=== PATIENT | male | born 1980 | race Caucasian/White ===

== ENCOUNTER 2017-06-21 09:46 | Inpatient (IN) | payer BC ==
[~2017-06-21 09:46] MED LIST: FLUT1INH INH; MONT10TA2 PO; PROZ20CA11 PO
[2017-06-21] MEDS ORDERED: PROPOFOL 200 MG/20 ML AMP IV ONE (12:00)
[2017-06-21] MEDS ORDERED: KETOROLAC TROMETHAMINE 30 MG/ML (IVP) VIAL IV PUSH ONE (12:00)
[2017-06-21] MEDS ORDERED: LIDOCAINE HCL 1% PF 5 ML SYRINGE OTHER ONE (12:00)
[2017-06-21] MEDS ORDERED: ePHEDrine/NS 25 MG/5 ML SYRINGE IV ONE (12:00)
[2017-06-21] MEDS ORDERED: NEOSTIGMINE 5 MG/5 ML SYRINGE IV PUSH ONE (12:00)
[2017-06-21] MEDS ORDERED: GLYCOPYRROLATE 1 MG/5 ML SYRINGE IV PUSH ONE (12:00)
[2017-06-21] MEDS ORDERED: ONDANSETRON HCL 4 MG/2 ML VIAL IV ONE (12:00)
[2017-06-21] MEDS ORDERED: ROCURONIUM INJ 50 MG/5 ML SYRINGE IV PUSH ONE (12:00)
[2017-06-21] MEDS ORDERED: PHENYLEPH/NS 1000 MCG/10 ML SYR IV ONE (12:00)
[2017-06-21] MEDS ORDERED: LACTATED RINGER'S 1000 ML INJ 1,000 ML IV ONE (12:00)
[2017-06-21] MEDS ORDERED: DEXAMETHASONE SOD PHOS 4 MG/ML VIAL IV ONE (12:00)
[2017-06-21 13:19] VITALS: BP 122/61; PULSE 51; RESP 16; TEMP 99.1; O2SAT 97
[2017-06-21] MEDS ORDERED: FLUO1TAB3 PO (13:55)
[2017-06-21] MEDS ORDERED: ACETAMINOPHEN 325 MG TAB PO PRN (14:15)
[2017-06-21] MEDS ORDERED: LACTULOSE SYRUP 20 GM/30 ML CUP PO PRN (14:15)
[2017-06-21] MEDS ORDERED: BISACODYL 10 MG SUPP RECTAL PRN (14:15)
[2017-06-21] MEDS ORDERED: MAGNESIUM HYDROXIDE SUSP 30 ML CUP PO PRN (14:15)
[2017-06-21] MEDS ORDERED: SENNOSIDES 8.6 MG TAB PO PRN (14:15)
[2017-06-21] MEDS ORDERED: NALOXONE HCL 0.4 MG/ML AMP IV PUSH PRN (14:15)
[2017-06-21] MEDS ORDERED: SODIUM CHLORIDE 0.9% FLUSH 10 ML FLUSH IV FLUSH PRN (14:15)
[2017-06-21] MEDS: SODIUM CHLOR 0.9% 1000 ML INJ 1,000 ML IV SCH ×3 (14:36→23:53)
[2017-06-21] MEDS: PIPERACIL-TAZO 3.375 GM PREMIX 50 ML IV SCH ×2 (14:38→19:20)
--- NOTE | 2017-06-21 14:41 | HHI.HP ---
[facility]Staff Admission Diagnosis Acute appendicitis Diagnoses: Chief Complaint: Right lower quadrant pain Travel History International Travel<30 Days: No Contact w/Intl Traveler <30 Da: No History of Present Illness This is a 36-year-old male past medical history of migraines who presented with right lower quadrant pain starting yesterday afternoon. Patient stated that initially the pain was mild, consider more annoying, and constant. He stated that around 10 PM he woke up with severe pain that worsened throughout the night so went to emergency department. Pain located in the right lower quadrant. Nothing makes it better or worse. Patient stated that he also had episodes of emesis described as vomiting his food or yellowish clear liquid. Patient stated he felt like he had chills. Denies any fevers. Denies any urinary symptoms. Patient initially seen at [facility] with suspicion of acute appendicitis. All other review systems reviewed and negative. Past Family Social History Past Medical History Depression Migraines Excise-induced asthma Past Surgical History Left forearm tendon repair Reported Medications Fluoxetine (Fluoxetine HCl) 20 Mg Tab 30 Mg PO DAILY Singulair (Montelukast Sodium) 10 Mg Tab 10 Mg PO HS Breo Ellipta Inh (Fluticasone/Vilanterol) 100-25 Mcg/Act Inh 1 Puff INH DAILY Use daily at the same time. Allergies: Coded Allergies: No Known Allergies (Unverified Allergy, Unknown, 06/14/17) Active Ordered Medications Current Medications Sodium Chloride 1,000 ml @ 150 mls/hr Q6H40M IV Last administered on 06/21/17at 14:36; Start 06/21/17 at 14:15 Sodium Chloride (NS Flush) 2 ml UNSCH PRN IV FLUSH FLUSH AFTER USING IV ACCESS ; Start 06/21/17 at 14:15 Sodium Chloride (NS Flush) 2 ml BID IV FLUSH ; Start 06/21/17 at 21:00 Acetaminophen (Tylenol) 650 mg Q4H PRN PO TEMP > 100.4; Start 06/21/17 at 14:15 Ondansetron HCl (Zofran Inj) 4 mg Q6H PRN IVP NAUSEA OR VOMITING; Start at 14:15 Naloxone HCl (Narcan Inj) 0.4 mg UNSCH PRN IV PUSH SEE LABEL COMMENTS; Start at 14:15 Senna/Docusate Sodium (Marj-Colace) 1 tab BID PO ; Start 06/21/17 at 21:00 Magnesium Hydroxide (Milk Of Magnesia Liq) 30 ml Q12H PRN PO Mild constipation ; Start 06/21/17 at 14:15 Sennosides (Senokot) 17.2 mg Q12H PRN PO Moderate constipation; Start 06/21/17 at 14:15 Bisacodyl (Dulcolax Supp) 10 mg DAILY PRN RECTAL SEVERE CONSITIPATION; Start at 14:15 Lactulose (Lactulose Liq) 30 ml DAILY PRN PO SEVERE CONSITIPATION; Start at 14:15 Morphine Sulfate (Morphine Inj) 2 mg Q3H PRN IV PUSH pain 3-10; Start 06/21/17 at 14:30 Piperacillin Sod/ Tazobactam Sod 50 ml @ 100 mls/hr Q6H IV Last administered on 06/21/17at 14:38; Start 06/21/17 at 15:00 Family History Father had a history of kidney cancer. Social History Denies any alcohol, tobacco, illicit drug use. Physical Exam Vital Signs Vital Signs Date Time Temp Pulse Resp B/P (MAP) Pulse Ox O2 Delivery O2 Flow Rate FiO2 06/21/17 13:19 99.1 51 16 122/61 (81) 97 Physical Exam GENERAL: This is a well-nourished, well-developed patient, in no apparent distress. SKIN: No rashes, ecchymoses or lesions. Cool and dry. HEAD: Atraumatic. Normocephalic. No temporal or scalp tenderness. EYES: Pupils equal round and reactive. Extraocular motions intact. No scleral icterus. No injection or drainage. ENT: Nose without bleeding, purulent drainage or septal hematoma. Throat without erythema, tonsillar hypertrophy or exudate. Uvula midline. Airway patent. NECK: Trachea midline. No JVD or lymphadenopathy. Supple, nontender, no meningeal signs. CARDIOVASCULAR: Regular rate and rhythm without murmurs, gallops, or rubs. RESPIRATORY: Clear to auscultation. Breath sounds equal bilaterally. No wheezes , rales, or rhonchi. GASTROINTESTINAL: Abdomen soft and nondistended. RLQ tenderness with mild palpation very severe with deep palpation. No hepato-splenomegaly, or palpable masses. No guarding. MUSCULOSKELETAL: Extremities without clubbing, cyanosis, or edema. No joint tenderness, effusion, or edema noted. No calf tenderness. Negative Homans sign bilaterally. NEUROLOGICAL: Awake and alert. Cranial nerves II through XII intact. Motor and sensory grossly within normal limits. Five out of 5 muscle strength in all muscle groups. Normal speech. Caprini VTE Risk Assessment Caprini VTE Risk Assessment: No/Low Risk (score <= 1) Caprini Risk Assessment Model Point Value = 1 Point Value = 2 Point Value = 3 Point Value = 5 Age 41-60 Minor surgery BMI > 25 kg/m2 Swollen legs Varicose veins or History of unexplained or recurrent spontaneous Oral contraceptives or hormone replacement Sepsis (< 1 month) Serious lung disease, including pneumonia (< 1 month) Abnormal pulmonary function Acute myocardial infarction Congestive heart failure (< 1 month) History of inflammatory bowel disease Medical patient at bed rest Age 61-74 Arthroscopic surgery Major open surgery (> 45 min) Laparoscopic surgery (> 45 min) Malignancy Confined to bed (> 72 hours) Immobilizing plaster cast Central venous access Age >= 75 History of VTE Family history of VTE Factor V Leiden Prothrombin [id number] Lupus anticoagulant Anticardiolipin antibodies Elevated serum homocysteine Heparin-induced thrombocytopenia Other congenital or acquired thrombophilia Stroke (< 1 month) Elective arthroplasty Hip, pelvis, or leg fracture Acute spinal cord injury (< 1 month) Prophylaxis Regimen Total Risk Factor Score Risk Level Prophylaxis Regimen 0-1 Low Early ambulation 2 Moderate Order ONE of the following: *Sequential Compression Device (SCD) *Heparin 5000 units SQ BID 3-4 Higher Order ONE of the following medications: *Heparin 5000 units SQ TID *Enoxaparin/Lovenox 40 mg SQ daily (WT < 150 kg, CrCl > 30 mL/min) *Enoxaparin/Lovenox 30 mg SQ daily (WT < 150 kg, CrCl > 10-29 mL/min) *Enoxaparin/Lovenox 30 mg SQ BID (WT < 150 kg, CrCl > 30 mL/min) AND/OR *Sequential Compression Device (SCD) 5 or more Highest Order ONE of the following medications: *Heparin 5000 units SQ TID (Preferred with Epidurals) *Enoxaparin/Lovenox 40 mg SQ daily (WT < 150 kg, CrCl > 30 mL/min) *Enoxaparin/Lovenox 30 mg SQ daily (WT < 150 kg, CrCl > 10-29 mL/min) *Enoxaparin/Lovenox 30 mg SQ BID (WT < 150 kg, CrCl > 30 mL/min) AND *Sequential Compression Device (SCD) Assessment and Plan Assessment and Plan This is a 36-year-old male presented with right lower quadrant pain and emesis Right lower quadrant pain -CT scan shows appendix dilated and fluid-filled possible appendicolith cannot exclude acute appendicitis. Based on imaging and presentation concern for appendicitis. - Dr. Emanuel was notified that patient was in hospital to determine if patient will need surgery. -Patient is clinically stable. Will start patient on Zosyn. -Continue to monitor clinically. Will keep n.p.o. anticipating possible surgery. Start on IV fluids, give antiemetics and pain control. Depression/exercise-induced asthma -Asymptomatic. Continue with home medication. DVT prophylaxis -SCDs Discussed Condition With patient and girlfriend Physician Certification 2 Midnight Certification Type: Admission for Inpatient Services Order for Inpatient Services The services are ordered in accordance with Medicare regulations or non- Medicare payer requirements, as applicable. In the case of services not specified as inpatient-only, they are appropriately provided as inpatient services in accordance with the 2-midnight benchmark. Estimated LOS (days): 2 2 days is the estimated time the patient will need to remain in the hospital, assuming treatment plan goals are met and no additional complications. Post-Hospital Plan: Home Caridad Toscnao MD Jun 21, 2017 14:41
[2017-06-21] MEDS: ONDANSETRON HCL 4 MG/2 ML VIAL IVP PRN (15:14)
[2017-06-21] MEDS: MORPHINE SULFATE 2 MG/ML INJ IV PUSH PRN (15:16)
[2017-06-21] MEDS ORDERED: BUPIVACAINE/EPINEPHRINE 0.5% PF 30 ML VIAL ONE (15:42)
[2017-06-21 16:00] VITALS: BP 125/57; PULSE 50; RESP 17; TEMP 100.3; O2SAT 98
[2017-06-21] MEDS ORDERED: *MEPERIDINE 25 MG INJ VIAL PERIprocedural Use ONLY ONE (17:23)
[2017-06-21] MEDS ORDERED: DO NOT ADM ANY ANTICOAGULANT DRUGS PRN (17:27)
[2017-06-21] MEDS ORDERED: ACETAMINOPHEN 1000 MG/100 ML 100 ML IV ONE (17:27)
[2017-06-21] MEDS ORDERED: MIDAZOLAM HCL 2 MG/2 ML VIAL ONE (17:28)
--- NOTE | 2017-06-21 17:34 | HHI.PR ---
cc: Demetri Emanuel MD Immediate Post Op Note Procedure Date: Jun 21, 2017 Pre Op Diagnosis: (1) RLQ abdominal pain (2) Abnormal CT of the abdomen (3) Appendicitis with peritonitis Post Op Diagnosis: (1) S/P laparoscopic appendectomy (2) RLQ abdominal pain (3) Appendicitis with peritonitis (4) Abnormal CT of the abdomen Surgeon: Demetri Emanuel Camera Supervisor(s): Please refer to OR record Procedure: Laparoscopic appendectomy Findings: Inflamed appendix Complications: None Drains: None IVF Patient to: PACU Patient Condition: Good Implant/Devices: SEE IMPLANT LOG (if applicable) Date/Time of Procedure: SEE SURGICAL CARE RECORD Demetri Emanuel MD Jun 21, 2017 17:34
[2017-06-21] MEDS ORDERED: NORC5TAB PO (17:35)
[2017-06-21] MEDS: ACETAMINOPHEN 1000 MG/100 ML 100 ML IV SCH ×2 (17:38→23:53)
[2017-06-21] MEDS ORDERED: ONDANSETRON HCL 4 MG/2 ML VIAL IV PRN (17:45)
[2017-06-21 18:28] VITALS: BP 119/55; PULSE 55; RESP 18; TEMP 98.7; O2SAT 95
--- NOTE | 2017-06-21 18:41 | MB ---
cc: Demetri Emanuel MD DATE OF CONSULT: 06/21/2017 REASON FOR CONSULTATION: Acute abdominal pain, possible appendicitis. HISTORY OF PRESENT ILLNESS: This is a pleasant 36-year-old gentleman who began to experience some abdominal pain in the right lower quadrant yesterday afternoon, he got progressively worse, came into the emergency room over in [place] where the ER physician examined the patient and felt that he possibly could have appendicitis. A CT scan was done which showed a fecalith and some thickening of the appendix. The ER physician did not feel comfortable sending the patient home because of the amount of discomfort he was having, so [facility] operating room are available. PAST MEDICAL HISTORY: Negative for any chronic medical problems except for exertional asthma. REVIEW OF SYSTEMS: He had no chest pain, no shortness of breath, no neurologic deficits, no kidney problems, no GI complaints except as above, no endocrine or electrolyte abnormalities. MEDICATIONS: He does take some asthma meds they are listed in the computer. ALLERGIES: HE IS NOT ALLERGIC TO ANYTHING. PHYSICAL EXAMINATION: GENERAL: He is alert, oriented, obviously uncomfortable in the right lower quadrant at [place] point. NECK: Supple. CHEST: Clear. HEART: Regular rate. ABDOMEN: Exquisite tenderness with peritonitis findings in the right lower quadrant. EXTREMITIES: Moves all extremities. No clubbing, cyanosis or edema. NEUROLOGIC: He is alert and oriented without focal deficits. LABORATORY DATA: He had a slightly elevated white count at 11. Chemistry was essentially normal. Coags were normal. Toxicology normal. Urine clear. IMAGING STUDIES: He had a CT scan which showed a fecalith and some inflammatory changes around the appendix. ASSESSMENT: A 36-year-old gentleman with peritonitis consistent with acute appendicitis on clinical exam, clinical history, suggestive on CT. PLAN: At this time, immediate operative intervention. This is discussed with the patient in detail. He appeared to understand. His is with him. I have called the OR. Demetir Emanuel MD JDB/KD , 05:15 PM , 06:39 PM [facility]
[2017-06-21] MEDS: DOCUSATE SODIUM 50 MG/SENNA 8.6 MG TAB PO SCH (19:20)
[2017-06-21] MEDS: SODIUM CHLORIDE 0.9% FLUSH 10 ML FLUSH IV FLUSH SCH (19:21)
[2017-06-21 20:00] VITALS: BP 122/55; PULSE 59; RESP 17; TEMP 97.6; O2SAT 97
--- NOTE | 2017-06-21 20:20 | MP ---
cc: Demetri Emanuel MD, Joseph D MD DATE OF OPERATION: 06/21/2017 PREOPERATIVE DIAGNOSIS: Acute appendicitis. POSTOPERATIVE DIAGNOSIS: Acute appendicitis. PROCEDURE: Laparoscopic appendectomy. ANESTHESIA: General. SURGEON Demetri Emanuel MD INDICATIONS: This is a pleasant gentleman who was found on clinical exam to have findings classic for appendicitis. Plans were made for above. PROCEDURE IN DETAIL: The patient is taken to the operating room and placed in supine position. After endotracheal anesthesia, his abdomen is prepped and draped in Betadine solution. He had already been given antibiotics. We make an incision just above the umbilicus. Veress needle is inserted. The saline load test is performed up to 15 mmHg. The trocars are then introduced, 10 mm just above the umbilicus and two other 5 mm in the midline. We are able to check the appendix. It is obviously inflamed with a fecalith stuck in the middle portion of the appendix. We are able to take the appendiceal mesentery down with a Harmonic scalpel. Two endo-ties are placed around the base of the appendix. The appendix is amputated and placed in an Endo-catch and pulled out through the umbilical incision. We then check our dissection site. There is excellent hemostasis. We irrigate fluid down in the low pelvis. The terminal ileum looks normal. The gallbladder looks normal. The liver looks normal. No other gross abnormalities seen. I drape the omentum over the appendiceal stump and the irrigating solution and CO2 gas is then evacuated out. We then close the fascia at the umbilicus with a 0 Vicryl, the skin at all 3 sites closed with 4-0 Vicryl. Steri-Strips are applied. Sterile bandage applied. The patient tolerated the procedure well, had no immediate postop complication. Demetri Soliman. MD Jenae JERICA//chey , 05:17 PM , 07:36 PM
[2017-06-21] MEDS: ACETAMINOPHEN/HYDROcodone 325 MG/5 MG TAB PO PRN (20:35)
[2017-06-22] VITALS: BP 125/57; PULSE 78; RESP 18; TEMP 96; O2SAT 98
[2017-06-22] MEDS: PIPERACIL-TAZO 3.375 GM PREMIX 50 ML IV SCH ×2 (03:06→07:54)
[2017-06-22] MEDS: ACETAMINOPHEN/HYDROcodone 325 MG/5 MG TAB PO PRN ×3 (03:09→12:27)
[2017-06-22 04:00] VITALS: BP 114/56; PULSE 54; RESP 18; TEMP 95.1; O2SAT 98
[2017-06-22] MEDS: ACETAMINOPHEN 1000 MG/100 ML 100 ML IV SCH ×2 (05:13→11:23)
[2017-06-22 07:04] LABS: HEMATOCRIT 34.3 % (39.0-51.0); MEAN CELL VOLUME 91.2 FL (80.0-100.0); MEAN CORPUSCULAR HEMOGLOBIN 31.9 PG (27.0-34.0); MEAN PLATELET VOLUME 7.7 FL (7.0-11.0); PLATELET COUNT 233 TH/MM3 (150-450); RED BLOOD COUNT 3.76 MIL/MM3 (4.50-5.90); RED CELL DISTRIBUTION WIDTH 13.4 % (11.6-17.2); WHITE BLOOD COUNT 10.4 TH/MM3 (4.0-11.0)
[2017-06-22 07:25] LABS: BICARBONATE 25.5 MEQ/L (21.0-32.0); CALCIUM 8.4 MG/DL (8.5-10.1); CREATININE 0.9 MG/DL (0.60-1.30)
[2017-06-22] MEDS: DOCUSATE SODIUM 50 MG/SENNA 8.6 MG TAB PO SCH (07:53)
[2017-06-22] MEDS: SODIUM CHLORIDE 0.9% FLUSH 10 ML FLUSH IV FLUSH SCH (07:54)
[2017-06-22] MEDS: SODIUM CHLOR 0.9% 1000 ML INJ 1,000 ML IV SCH (07:55)
[2017-06-22 08:00] VITALS: BP 121/64; PULSE 45; RESP 18; TEMP 97.9; O2SAT 98
[2017-06-22] MEDS: MORPHINE SULFATE 2 MG/ML INJ IV PUSH PRN (08:53)
[2017-06-22] MEDS: ONDANSETRON HCL 4 MG/2 ML VIAL IVP PRN (08:53)
[2017-06-22] MEDS ORDERED: PANTOPRAZOLE SOD 20 MG DELAYED RELEASE TAB PO SCH (09:00)
[2017-06-22 12:00] VITALS: BP 113/67; PULSE 42; RESP 16; TEMP 97.3; O2SAT 97
--- NOTE | 2017-06-22 13:40 | HHI.PR ---
Subjective Remarks Denies abdominal pain, nausea and vomiting. Afebrile. Tolerating diet. Objective Vitals Vital Signs Date Time Temp Pulse Resp B/P (MAP) Pulse Ox O2 Delivery O2 Flow Rate FiO2 06/22/17 08:00 97.9 45 18 121/64 (83) 98 06/22/17 05:43 18 06/22/17 04:09 18 06/22/17 04:00 95.1 54 18 114/56 (75) 98 06/22/17 00:00 96.0 78 18 125/57 (79) 98 06/21/17 20:00 97.6 59 17 122/55 (77) 97 06/21/17 18:28 98.7 55 18 119/55 (76) 95 06/21/17 17:45 58 16 125/60 (81) 65 Nasal Cannula 2 06/21/17 17:30 66 16 130/62 (84) 96 Nasal Cannula 2 06/21/17 17:18 99.7 76 16 147/68 (94) 100 Nasal Cannula 2 06/21/17 16:00 100.3 50 17 125/57 (79) 98 I/O 06/21/17 06/21/17 06/21/17 06/22/17 06/22/17 06/22/17 07:00 15:00 23:00 07:00 15:00 23:00 Intake Total 2325 ml 1440 ml 150 ml Output Total 110 ml Balance 2215 ml 1440 ml 150 ml Intake Oral 75 ml 240 ml IV Total 2250 ml 1200 ml 150 ml Output Urine Total 100 ml Estimated Blood Loss 10 ml # Voids 2 2 Result Diagram: 06/22/17 0631 06/22/17 0631 Objective Remarks AAOx3 NAD Clear lungs S1s2 RRR abdomen mildly distended but soft, bowel sounds present. no edema in lower extremities Procedures Status post laparoscopic appendectomy. Medications and IVs Current Medications Medications (Trade) Dose Ordered Sig/Autumn Route Start Time Stop Time Status Last Admin Sodium Chloride 1,000 ml @ 150 mls/hr Q6H40M IV 06/21/17 14:15 06/22/17 07:55 (NS Flush) 2 ml UNSCH PRN IV FLUSH 06/21/17 14:15 (NS Flush) 2 ml BID IV FLUSH 06/21/17 21:00 06/22/17 07:54 (Tylenol) 650 mg Q4H PRN PO 06/21/17 14:15 (Zofran Inj) 4 mg Q6H PRN IVP 06/21/17 14:15 06/22/17 08:53 (Narcan Inj) 0.4 mg UNSCH PRN IV PUSH 06/21/17 14:15 (Marj-Colace) 1 tab BID PO 06/21/17 21:00 06/22/17 07:53 (Milk Of Magnesia Liq) 30 ml Q12H PRN PO 06/21/17 14:15 (Senokot) 17.2 mg Q12H PRN PO 06/21/17 14:15 (Dulcolax Supp) 10 mg DAILY PRN RECTAL 06/21/17 14:15 (Lactulose Liq) 30 ml DAILY PRN PO 06/21/17 14:15 (Morphine Inj) 2 mg Q3H PRN IV PUSH 06/21/17 14:30 06/22/17 08:53 Piperacillin Sod/ Tazobactam Sod 50 ml @ 100 mls/hr Q6H IV 06/21/17 15:00 06/22/17 07:54 ([place] 5-325 Mg) 1 tab Q4H PRN PO 06/21/17 17:45 06/22/17 12:27 (Protonix) 20 mg DAILY PO 06/22/17 09:00 06/22/17 07:53 Miscellaneous Information ALL NURSING DEPARTME... UNSCH PRN .XX 06/21/17 17:27 06/22/17 17:26 A/P Problem List: (1) Appendicitis with peritonitis ICD Code: K35.3 - Acute appendicitis with localized peritonitis Status: Acute (2) S/P laparoscopic appendectomy ICD Code: Z90.49 - Acquired absence of other specified parts of digestive tract Status: Acute (3) RLQ abdominal pain ICD Code: R10.31 - Right lower quadrant pain Status: Resolved (4) Nausea & vomiting ICD Code: R11.2 - Nausea with vomiting, unspecified Status: Resolved (5) Depression ICD Code: F32.9 - Major depressive disorder, single episode, unspecified Status: Chronic (6) Exercise-induced asthma ICD Code: J45.990 - Exercise induced bronchospasm Status: Chronic Assessment and Plan Continue to monitor medical floor. IV Zosyn Pain control after general surgery, patient currently on [place]. zofran as needed for nausea and vomiting which have resolved. Continue fluoxetine for depression which seems to be stable. Continue Singulair for exercise-induced asthma whic is stable Discharge Planning Discharge pending general surgery clearance. Problem Qualifiers (1) Nausea & vomiting: (2) Depression: Qualified Codes: F32.9 - Major depressive disorder, single episode, unspecified Maxx Ramsey MD Jun 22, 2017 13:40
--- NOTE | 2017-06-22 14:09 | HHI.PR ---
Subjective Subjective Notes Painful yesterday; better today Tolerating diet Objective Vitals/I&O Vital Signs Date Time Temp Pulse Resp B/P (MAP) Pulse Ox O2 Delivery O2 Flow Rate FiO2 06/22/17 12:00 97.3 42 16 113/67 (82) 97 06/21/17 17:45 Nasal Cannula 2 Labs Laboratory Tests Test 06/22/17 06:31 White Blood Count 10.4 Red Blood Count 3.76 Hemoglobin 12.0 Hematocrit 34.3 Mean Corpuscular Volume 91.2 Mean Corpuscular Hemoglobin 31.9 Mean Corpuscular Hemoglobin Concent 35.0 Red Cell Distribution Width 13.4 Platelet Count 233 Mean Platelet Volume 7.7 Blood Urea Nitrogen 15 Creatinine 0.90 Random Glucose 103 Calcium Level 8.4 Sodium Level 141 Potassium Level 4.1 Chloride Level 107 Carbon Dioxide Level 25.5 Anion Gap 9 Estimat Glomerular Filtration Rate 95 Lungs: Clear Abdomen: Post-op tenderness Narrative Exam Steri strips with minimal old drainage present A/P Assessment and Plan POD #1 lap appendectomy for acute appendicitis without perforation. Doing well Discharge home Follow up Dr. Emanuel . Gonzalez Cid MD Jun 22, 2017 14:09
== END 2017-06-22 14:56 | disposition home or self-care (01) | DRG 340 ==
LOC: NEDDLT 13:01 → N07A 13:11
PROVIDERS: ADMIT Hospitalist; ATTEND Hospitalist
PROC: 0DTJ4ZZ Resection of Appendix, Percutaneous Endoscopic Approach (ICD-10-PCS; principal; 2017-06-21 16:02)
DX: K35.3 Acute appendicitis with localized peritonitis (principal); F32.9 Major depressive disorder, single episode, unspecified; J45.990 Exercise induced bronchospasm
CPT/HCPCS: 80048; 85027; 88304; J0131; J1100; J1885; J2175; J2250; J2270; J2370; J2405; J2543; J2710; J3010; J7030; J7120